=== PATIENT | female | born 1965 | race Caucasian/White ===

== ENCOUNTER 2017-07-12 10:06 | Day surgery (SDC) | payer OTHER ==
[2017-07-10 09:52] VITALS: BMI 33.0
[~2017-07-12 10:06] MED LIST: DEXAMETHASONE SOD PHOSPHATE 10 MG/ML 1 ML VIAL IV ONE; HEPARIN SODIUM,PORCINE 5,000 UNIT/ML 1 ML VIAL SQ ONE; LACTATED RINGERS 1,000 ML IV SCH; MORPHINE SULFATE 4 MG/ML SYRINGE IV PRN; ONDANSETRON 4 MG/2 ML VIAL IVP ONE; ONDANSETRON 4 MG/2 ML VIAL IVP PRN; Pre Op ABX Message 1 EACH MISC MISCELLANE ONE
[2017-07-12 10:33] VITALS: RESP 16; TEMP 98.2
[2017-07-12] MEDS ORDERED: LIDOCAINE 1% 20 ML VIAL (10MG/ML) FOR IV START INTRADERMA ONE (10:42)
[2017-07-12] MEDS ORDERED: SCOPOLAMINE 1.5MG/72HR PATCH TRANSDERM ONE (10:43)
--- NOTE | 2017-07-12 11:40 | P.GSHP ---
History of Present Illness H&P Date: 07/12/17 Chief Complaint: History of breast cancer This a 52-year-old female who has a previous history of breast cancer. Patient had a Port-A-Cath inserted approximate 7 years ago. She presents today for removal of Port-A-Cath. Past Medical History Past Medical History: Cancer, Thyroid Disorder Additional Past Medical History / Comment(s): bronchitis 2017, breast cancer History of Any Multi-Drug Resistant Organisms: None Reported Past Surgical History: Breast Surgery, Section Additional Past Surgical History / Comment(s): left mastectomy with lymph nodes removed, Past Anesthesia/Blood Transfusion Reactions: Motion Sickness, Postoperative Nausea & Vomiting (PONV) Smoking Status: Former smoker - Past Family History Mother Family Medical History: No Reported History Medications and Allergies Home Medications Medication Instructions Recorded Confirmed Type Ibuprofen 200 mg PO DIRECTED PRN 07/10/17 07/10/17 History Levothyroxine Sodium [Synthroid] 75 mcg PO DAILY 07/10/17 07/12/17 History Vitamin C(Dose Unknown) 1 tab PO DAILY 07/10/17 07/12/17 History Vitamin D (Dose Unknown) 1 tab PO DAILY 07/10/17 07/12/17 History Allergies Allergy/AdvReac Type Severity Reaction Status Date / Time esomeprazole [From Nexium] Allergy Rash/Hives Verified 07/10/17 09:44 Surgical - Exam Vital Signs Temp Pulse Resp BP Pulse Ox 98.2 F 64 16 158/88 99 07/12/17 10:32 07/12/17 10:32 07/12/17 10:32 07/12/17 10:32 07/12/17 10:32 - General well developed, no distress - Eyes PERRL - ENT normal pinna - Neck no masses - Respiratory normal expansion - Cardiovascular Rhythm: regular - Abdomen Abdomen: soft, non tender Assessment and Plan Assessment: History of breast cancer. We'll perform removal of Port-A-Cath.
[2017-07-12] MEDS ORDERED: KETAMINE 10 MG/ML 20 ML VIAL ONE (11:51)
[2017-07-12] MEDS ORDERED: LIDOCAINE 1% INJ 10MG/ML (20 ML MDV) ONE (11:51)
[2017-07-12] MEDS ORDERED: MIDAZOLAM 2 MG/2 ML VIAL ONE (11:51)
[2017-07-12] MEDS ORDERED: PROPOFOL 10 MG/ML 20 ML VIAL IV ONE (11:51)
[2017-07-12] MEDS ORDERED: fentaNYL (PF) 50 MCG/ML 2 ML AMP ONE (11:51)
[2017-07-12] MEDS ORDERED: LIDOCAINE 1%-EPI 1:100,000 20 ML VIAL SQ ONE ×2 (12:07→12:11)
[2017-07-12 12:37] VITALS: BP 134/93; PULSE 61
--- NOTE | 2017-07-12 13:01 | P.OP ---
Date of Procedure: 07/12/17 Preoperative Diagnosis: Breast cancer Postoperative Diagnosis: Breast cancer Procedure(s) Performed: Removal of right subclavian Port-A-Cath Anesthesia: MAC Surgeon: Medhat Multani Estimated Blood Loss (ml): 5 Pathology: none sent Condition: stable Disposition: PACU Description of Procedure: Patient's placed the operative table in supine position. She received IV sedation. Her neck and chest was prepped and draped usual sterile fashion. The area of the right subclavian Port-A-Cath was anesthetized 1% local Xylocaine. The skin was incised with 15 blade and then using left cautery the subcutaneous tissues were divided. Using blunt dissection the Port-A-Cath was dissected free from the chest wall. And then the Port-A-Cath was withdrawn. The entire catheter was withdrawn. The Bovie hemostasis. The skin was closed interrupted 3-0 Monocryl suture. Dermabond was applied. Patient top procedure well and was sent to recovery in stable condition.
== END 2017-07-12 13:06 | disposition home or self-care (01) ==
LOC: OR 10:06
PROVIDERS: ATTEND Surgery
DX: Z45.2 Encounter for adjustment and management of vascular access device (principal); Z85.3 Personal history of malignant neoplasm of breast; Z90.12 Acquired absence of left breast and nipple; Z92.21 Personal history of antineoplastic chemotherapy; E07.9 Disorder of thyroid, unspecified; Z79.890 Hormone replacement therapy; Z88.8 Allergy status to other drugs, medicaments and biological substances; Z87.891 Personal history of nicotine dependence